=== PATIENT | female | born 1995 ===

== ENCOUNTER 2025-02-08 16:22 | Outpatient (CLI) | payer BC, SELFPAY | END 2025-02-08 16:23 | disposition home or self-care (01) | LOC: NFLDREF 16:22 | PROVIDERS: Visit Provider Physician Assistant | DX: Z13.9 Encounter for screening, unspecified (principal) | CPT/HCPCS: 80061 ==

== ENCOUNTER 2025-02-15 09:04 | Outpatient (CLI) | payer BC, SELFPAY ==
--- NOTE | 2025-02-15 09:15 | CRLHL7_ITS ---
For Patients: As a result of the Century Cures Act, medical imaging exams and procedure reports are released immediately into your electronic medical record. You may view this report before your referring provider. If you have questions, please contact your health care provider. INDICATION: Dyspareunia TECHNIQUE: Ultrasound pelvis transabdominal and transvaginal for better assessment or to better visualize the endometrium. Real-time sonographic images with spectral and color Doppler imaging of the ovaries were obtained. COMPARISON: None. FINDINGS: Uterus: Anteverted and measures 9.1 x 3.9 x 5.9 cm. Normal echotexture of the myometrium. No masses. Endometrium: Transvaginal imaging was performed to better evaluate the endometrium. Endometrial thickness measures 6 mm. No sign of endometrial mass or fluid. Few punctate echogenic foci within the endometrium Right ovary 3.2 x 2.4 x 2.6 cm. Left ovary 3.4 x 1.8 x 2.2 cm. No ovarian or adnexal masses. Right ovarian dominant follicle measuring up to 1.5 cm. Normal blood flow is demonstrated in both ovaries. Cul-de-sac: No significant free fluid. IMPRESSION: Few punctate echogenic foci within the endometrium are nonspecific, possibly related to menstrual cycle phase. Additional considerations include calcifications or foci of endometriosis. Consider follow-up ultrasound in 6-8 weeks to assess resolution. If this finding persists, pelvic MRI can be considered Normal ovaries bilaterally Dictated by Katherine Vazquez MD @ 02/15/2025 1:58:11 PM (Electronically Signed)
== END 2025-02-15 09:05 | disposition home or self-care (01) ==
LOC: US 09:05
PROVIDERS: Visit Provider Physician Assistant
DX: N94.10 Unspecified dyspareunia (principal)
CPT/HCPCS: 76830; 76856